=== PATIENT | female | born 1995 | race Two or more races ===

== ENCOUNTER 2019-11-05 13:07 | Emergency (ER) | payer MEDICAID ==
[~2019-11-05] VITALS: Ht 162.6 cm; Wt 56.7 kg
[2019-11-05 13:42] VITALS: BP 115/75
[2019-11-05] MEDS ORDERED: ACETAMINOPHEN 500 MG TAB PO ONE (15:00)
[2019-11-05 15:49] LABS: Basophils # (auto) 0 10 ^3/uL (0-0.2); Basophils % (auto) 0.4 % (0.0-2.0); Eosinophils # (auto) 0.1 10 ^3/uL (0-0.8); Hematocrit 37.6 % (36.0-46.0); Hemoglobin 12.6 g/dL (12.2-16.2); Lymphocytes # (auto) 1.8 10 ^3/uL (0.4-5.4); Lymphocytes % (auto) 30.3 % (10.0-50.0); Mean Corpuscular Hemoglobin 29.6 pg (28.0-32.0); Mean Corpuscular Hgb Conc. 33.6 g/dL (32.0-36.0); Monocytes # (auto) 0.4 10 ^3/uL (0-1.3); Monocytes % (auto) 6.7 % (0.0-12.0); Neutrophils # (auto) 3.6 10 ^3/uL (1.6-8.6); Neutrophils % (auto) 61.6 % (37.0-80.0); Platelet Count (auto) 199 10^3/uL (140-450); Red Blood Cells 4.27 10^6/uL (4.0-5.20); Red Cell Distribution Width 12.7 % (11.8-14.3); White Blood Cell 5.9 10^3/uL (4.4-10.8)
[2019-11-05 19:37] LABS: Urine Bacteria FEW /hpf (None Seen); Urine Blood Negative /uL (Negative); Urine Specific Gravity 1.014 (1.001-1.035); Urine WBC 6 /hpf (0 - 5)
== END 2019-11-05 16:27 | disposition home or self-care (01) ==
LOC: ER 13:07
DX: O9A.211 Injury, poisoning and certain other consequences of external causes complicating pregnancy, first trimester (principal); S06.891A Other specified intracranial injury with loss of consciousness of 30 minutes or less, initial encounter; O02.1 Missed abortion; Z3A.11 11 weeks gestation of pregnancy; W19.XXXA Unspecified fall, initial encounter; Y93.89 Activity, other specified; Y92.89 Other specified places as the place of occurrence of the external cause; Y99.8 Other external cause status
CPT/HCPCS: 36415; 70450; 76801; 81001; 84702; 85025

== ENCOUNTER 2021-12-28 08:30 | Observation (INO) | payer MEDICAID ==
[2021-12-28] MEDS ORDERED: PREN-96 PO (11:28)
== END 2021-12-28 11:35 | disposition home or self-care (01) ==
LOC: UNDOADMOB 10:56 → LDRP 10:56 → UNDODISOB 11:35
PROVIDERS: ADMIT Obstetrics & Gynecology; ATTEND Obstetrics & Gynecology
DX: O60.03 Preterm labor without delivery, third trimester (principal); Z3A.29 29 weeks gestation of pregnancy
CPT/HCPCS: 59025; 81002; 94760; G0378

== ENCOUNTER 2022-01-04 07:49 | Observation (INO) | payer MEDICAID ==
[~2022-01-04] VITALS: Ht 162.6 cm; Wt 77.1 kg
[~2022-01-04 07:49] MED LIST: PREN-96 PO
== END 2022-01-04 10:55 | disposition home or self-care (01) ==
LOC: LDRP 10:11 → UNDOADMOB 10:11 → LDRP 10:13 → UNDODISOB 10:55
PROVIDERS: ADMIT Obstetrics & Gynecology; ATTEND Obstetrics & Gynecology
DX: O60.03 Preterm labor without delivery, third trimester (principal); Z3A.30 30 weeks gestation of pregnancy
CPT/HCPCS: 59025; 81002; 94760; G0378

== ENCOUNTER 2022-01-18 10:12 | Observation (INO) | payer MEDICAID ==
[2022-01-18] MEDS ORDERED: NIF10C PO (10:57)
== END 2022-01-18 11:21 | disposition home or self-care (01) ==
LOC: LDRP 10:12
PROVIDERS: ADMIT Obstetrics & Gynecology; ATTEND Obstetrics & Gynecology
DX: O62.9 Abnormality of forces of labor, unspecified (principal); Z3A.32 32 weeks gestation of pregnancy
CPT/HCPCS: 59025; 81002; 94760; G0378

== ENCOUNTER 2022-01-25 07:40 | Observation (INO) | payer MEDICAID ==
[~2022-01-25 07:40] MED LIST changes: +NIF10C PO
== END 2022-01-29 08:38 | disposition home or self-care (01) ==
LOC: LDRP 01-29 07:53 → UNDOADMOB 01-29 07:53 → LDRP 01-29 08:00
PROVIDERS: ADMIT Obstetrics & Gynecology; ATTEND Obstetrics & Gynecology
DX: O60.03 Preterm labor without delivery, third trimester (principal); Z3A.34 34 weeks gestation of pregnancy
CPT/HCPCS: 59025; 81002; 94760; G0378

== ENCOUNTER 2022-01-27 12:04 | Observation (INO) | payer MEDICAID | END 2022-01-27 14:15 | disposition home or self-care (01) | LOC: LDRP 12:04 | PROVIDERS: ADMIT Obstetrics & Gynecology; ATTEND Obstetrics & Gynecology | DX: O09.213 Supervision of pregnancy with history of pre-term labor, third trimester (principal); Z3A.34 34 weeks gestation of pregnancy | CPT/HCPCS: 59025; 81002; 94760; G0378 ==

== ENCOUNTER 2022-01-30 11:24 | Observation (INO) | payer MEDICAID ==
[~2022-01-30] VITALS: Ht 162.6 cm; Wt 72.6 kg
[2022-01-30] MEDS ORDERED: LACTATED RINGER'S 1,000 ML IV ONE (14:15)
[2022-01-30] MEDS ORDERED: NIFEdipine 10 MG CAP PO ONE (14:15)
[2022-01-30] MEDS ORDERED: BETAMETHASONE ACET (30mg/5ml) 5ml Vial 6mg/ml IM ONE (16:00)
== END 2022-01-30 16:27 | disposition home or self-care (01) ==
LOC: LDRP 11:24 → UNDOADMOB 11:24 → LDRP 11:32
PROVIDERS: ADMIT Obstetrics & Gynecology; ATTEND Obstetrics & Gynecology
DX: O60.03 Preterm labor without delivery, third trimester (principal); O42.913 Preterm premature rupture of membranes, unspecified as to length of time between rupture and onset of labor, third trimester; Z3A.34 34 weeks gestation of pregnancy
CPT/HCPCS: 59025; 76815; 81002; 84112; 94760; 96360; 96361; G0378; Q0114

== ENCOUNTER 2022-02-01 15:09 | Observation (INO) | payer MEDICAID | END 2022-02-01 16:58 | disposition home or self-care (01) | LOC: UNDOADMOB 15:09 → LDRP 15:09 → UNDODISOB 16:58 | PROVIDERS: ADMIT Obstetrics & Gynecology; ATTEND Obstetrics & Gynecology | DX: O60.03 Preterm labor without delivery, third trimester (principal); O41.03X0 Oligohydramnios, third trimester, not applicable or unspecified; Z3A.34 34 weeks gestation of pregnancy | CPT/HCPCS: 59025; 76818; 81002; 94760; G0378 ==

== ENCOUNTER 2022-02-05 13:16 | Observation (INO) | payer MEDICAID | END 2022-02-05 15:02 | disposition home or self-care (01) | LOC: UNDOADMOB 13:16 → LDRP 13:16 | PROVIDERS: ADMIT Obstetrics & Gynecology; ATTEND Obstetrics & Gynecology | DX: O60.03 Preterm labor without delivery, third trimester (principal); O41.03X0 Oligohydramnios, third trimester, not applicable or unspecified; Z3A.35 35 weeks gestation of pregnancy | CPT/HCPCS: 59025; 76818; 81002; 94760; G0378 ==

== ENCOUNTER 2022-02-08 13:08 | Observation (INO) | payer MEDICAID | END 2022-02-08 14:40 | disposition home or self-care (01) | LOC: UNDOADMOB 13:08 → LDRP 13:08 | PROVIDERS: ADMIT Obstetrics & Gynecology; ATTEND Obstetrics & Gynecology | DX: O60.03 Preterm labor without delivery, third trimester (principal); O41.03X0 Oligohydramnios, third trimester, not applicable or unspecified; O62.9 Abnormality of forces of labor, unspecified; Z3A.35 35 weeks gestation of pregnancy | CPT/HCPCS: 59025; 76817; 76818; 81002; G0378 ==

== ENCOUNTER 2022-02-12 09:01 | Observation (INO) | payer MEDICAID | END 2022-02-12 16:03 | disposition home or self-care (01) | LOC: LDRP 14:07 → UNDOADMOB 14:07 → LDRP 15:22 → UNDODISOB 16:03 | PROVIDERS: ADMIT Obstetrics & Gynecology; ATTEND Obstetrics & Gynecology | DX: O60.03 Preterm labor without delivery, third trimester (principal); Z3A.36 36 weeks gestation of pregnancy | CPT/HCPCS: 59025; 76818; 81002; 94760; G0378 ==

== ENCOUNTER 2022-02-19 10:50 | Observation (INO) | payer MEDICAID ==
[~2022-02-19 10:50] MED LIST changes: -NIF10C PO
== END 2022-02-19 11:55 | disposition home or self-care (01) ==
LOC: LDRP 10:50 → UNDOADMOB 10:50 → LDRP 11:04
PROVIDERS: ADMIT Obstetrics & Gynecology; ATTEND Obstetrics & Gynecology
DX: O62.9 Abnormality of forces of labor, unspecified (principal); Z3A.37 37 weeks gestation of pregnancy
CPT/HCPCS: 59025; 81002; 94760; G0378

== ENCOUNTER 2022-02-26 14:15 | Observation (INO) | payer MEDICAID ==
[2022-02-26] MEDS ORDERED: ONDANSETRON HCL 4 MG/2 ML VIAL IV PRN (14:45)
[2022-02-26] MEDS ORDERED: LACTATED RINGER'S 1,000 ML IV ONE (14:45)
[2022-02-26 16:01] LABS: Albumin 2.5 g/dL (3.4-5.0); Calcium 8.3 mg/dL (8.5-10.1); Potassium 3.7 mmol/L (3.5-5.1)
[2022-02-26 16:02] LABS: INR 0.97 (0.9-1.15); Partial Thromboplastin Time 25.7 sec (24.6-33.4)
[2022-02-26 16:05] LABS: BUN/Creatinine Ratio 19.6; Bilirubin, Total 0.6 mg/dL (0.2-1.0); Total Protein 6.4 g/dL (6.4-8.2); Uric Acid 3.5 mg/dL (2.6-6.0)
[2022-02-26 16:09] LABS: Basophils # (auto) 0 10 ^3/uL (0-0.2); Basophils % (auto) 0.2 % (0.0-2.0); Eosinophils # (auto) 0.1 10 ^3/uL (0-0.8); Eosinophils % (auto) 0.9 % (0.0-7.0); Hematocrit 29.9 % (36.0-46.0); Hemoglobin 10.1 g/dL (12.2-16.2); Lymphocytes # (auto) 1.4 10 ^3/uL (0.4-5.4); Lymphocytes % (auto) 19.5 % (10.0-50.0); Mean Corpuscular Hemoglobin 27.8 pg (28.0-32.0); Mean Corpuscular Hgb Conc. 33.8 g/dL (32.0-36.0); Mean Corpuscular Volume 82.2 fL (80.0-100.0); Monocytes # (auto) 0.6 10 ^3/uL (0-1.3); Monocytes % (auto) 7.8 % (0.0-12.0); Neutrophils # (auto) 5.2 10 ^3/uL (1.6-8.6); Neutrophils % (auto) 71.6 % (37.0-80.0); Red Blood Cells 3.64 10^6/uL (4.0-5.20); Red Cell Distribution Width 14.4 % (11.8-14.3); White Blood Cell 7.3 10^3/uL (4.4-10.8)
[2022-02-26] MEDS ORDERED: FAMO20TA10 PO (16:49)
[2022-02-26 17:23] LABS: Urine Bacteria FEW /hpf (None Seen); Urine Blood Negative /uL (Negative); Urine Mucus FEW (None Seen); Urine Specific Gravity 1.018 (1.001-1.035); Urine WBC 33 /hpf (0 - 5); Urine WBC Clumps PRESENT /hpf (None Seen)
[2022-02-26 17:29] LABS: Protein, Urine 21.7 mg/dL (0.0-11.9)
== END 2022-02-26 17:04 | disposition home or self-care (01) ==
LOC: LDRP 14:15
PROVIDERS: ADMIT Obstetrics & Gynecology; ATTEND Obstetrics & Gynecology
DX: O21.2 Late vomiting of pregnancy (principal); Z3A.38 38 weeks gestation of pregnancy
CPT/HCPCS: 36415; 59025; 80053; 81001; 81002; 82570; 84156; 84550; 85025; 85610; 85730; 94760; 96360; 96361; 96374; G0378; J2405

== ENCOUNTER 2023-08-06 10:00 | Observation (INO) | payer MEDICAID ==
[~2023-08-06] VITALS: Ht 162.6 cm; Wt 72.6 kg
[~2023-08-06 10:00] MED LIST changes: +FAMO20TA10 PO
[2023-08-06 11:20] LABS: Fern Testing Negative
== END 2023-08-06 12:57 | disposition home or self-care (01) ==
LOC: UNDOADMOB 10:00 → LDRP 10:00
PROVIDERS: ADMIT Obstetrics & Gynecology; ATTEND Obstetrics & Gynecology
DX: O26.892 Other specified pregnancy related conditions, second trimester (principal); R10.9 Unspecified abdominal pain; O42.912 Preterm premature rupture of membranes, unspecified as to length of time between rupture and onset of labor, second trimester; Z3A.24 24 weeks gestation of pregnancy
CPT/HCPCS: 59025; 76805; 81002; 84112; 94760; G0378; Q0114

== ENCOUNTER 2023-08-14 07:38 | Observation (INO) | payer MEDICAID ==
[2023-08-14] MEDS ORDERED: NIFE1POW XX (08:53)
[2023-08-14] MEDS ORDERED: NIFE10CA58 PO (08:53)
[2023-08-14] MEDS ORDERED: PROG100S VA (08:54)
[2023-08-14] MEDS ORDERED: FERR1TAB36 PO (08:55)
== END 2023-08-14 09:19 | disposition home or self-care (01) ==
LOC: UNDOADMOB 07:50 → LDRP 07:50
PROVIDERS: ADMIT Obstetrics & Gynecology; ATTEND Obstetrics & Gynecology
DX: O60.02 Preterm labor without delivery, second trimester (principal); O26.872 Cervical shortening, second trimester; Z3A.25 25 weeks gestation of pregnancy
CPT/HCPCS: 59025; 81002; 94760; G0378

== ENCOUNTER 2023-08-21 08:24 | Observation (INO) | payer MEDICAID ==
[~2023-08-21 08:24] MED LIST changes: +FERR1TAB36 PO; +NIFE10CA58 PO; -PREN-96 PO
[2023-08-21 09:14] LABS: Basophils # (auto) 0 10 ^3/uL (0-0.2); Basophils % (auto) 0.5 % (0.0-2.0); Eosinophils # (auto) 0.1 10 ^3/uL (0-0.8); Eosinophils % (auto) 1.5 % (0.0-7.0); Hematocrit 30.6 % (36.0-46.0); Hemoglobin 10.4 g/dL (12.2-16.2); Lymphocytes # (auto) 1.6 10 ^3/uL (0.4-5.4); Lymphocytes % (auto) 22.6 % (10.0-50.0); Mean Corpuscular Hemoglobin 29.6 pg (28.0-32.0); Mean Corpuscular Hgb Conc. 34.1 g/dL (32.0-36.0); Mean Corpuscular Volume 86.8 fL (80.0-100.0); Monocytes # (auto) 0.5 10 ^3/uL (0-1.3); Monocytes % (auto) 7.6 % (0.0-12.0); Neutrophils # (auto) 4.7 10 ^3/uL (1.6-8.6); Neutrophils % (auto) 67.8 % (37.0-80.0); Red Blood Cells 3.53 10^6/uL (4.0-5.20); Red Cell Distribution Width 13.2 % (11.8-14.3)
[2023-08-21 09:32] LABS: Alanine Aminotransferase 13 U/L (7-40); Albumin 3.6 g/dL (3.2-4.8); Alkaline Phosphatase 70 U/L (46-116); Anion Gap 7 (5-15); Aspartate Aminotransferase 13 U/L (13-40); BUN/Creatinine Ratio 11.8 (10.0-20.0); Bilirubin, Total 0.4 mg/dL (0.2-1.0); Blood Urea Nitrogen 6 mg/dL (9-23); Calcium 8.8 mg/dL (8.5-10.1); Carbon Dioxide 23 mmol/L (20-30); Chloride 106 mmol/L (98-107); Glucose 82 mg/dL (74-106); Potassium 3.6 mmol/L (3.5-5.1); Sodium 136 mmol/L (136-145); Total Protein 6.1 g/dL (5.7-8.2)
[2023-08-21] MEDS ORDERED: URSO300C2 PO (09:41)
== END 2023-08-21 09:51 | disposition home or self-care (01) ==
LOC: LDRP 08:24 → UNDOADMOB 08:24 → LDRP 08:26 → UNDODISOB 09:51
PROVIDERS: ADMIT Obstetrics & Gynecology; ATTEND Obstetrics & Gynecology
DX: O60.03 Preterm labor without delivery, third trimester (principal); O26.872 Cervical shortening, second trimester; O26.892 Other specified pregnancy related conditions, second trimester; L29.9 Pruritus, unspecified; Z3A.26 26 weeks gestation of pregnancy
CPT/HCPCS: 36415; 59025; 80053; 81002; 85025; 94760; G0378

== ENCOUNTER 2023-08-29 12:19 | Observation (INO) | payer MEDICAID ==
[~2023-08-29 12:19] MED LIST changes: +URSO300C2 PO
== END 2023-08-29 13:31 | disposition home or self-care (01) ==
LOC: UNDOADMOB 12:19 → LDRP 12:19 → UNDODISOB 13:31
PROVIDERS: ADMIT Obstetrics & Gynecology; ATTEND Obstetrics & Gynecology
DX: O60.02 Preterm labor without delivery, second trimester (principal); O26.872 Cervical shortening, second trimester; Z3A.27 27 weeks gestation of pregnancy
CPT/HCPCS: 59025; 81002; 94760; G0378

== ENCOUNTER 2023-09-12 08:20 | Observation (INO) | payer MEDICAID ==
[~2023-09-12 08:20] MED LIST changes: -FAMO20TA10 PO
== END 2023-09-12 10:00 | disposition home or self-care (01) ==
LOC: UNDOADMOB 08:20 → LDRP 08:20 → UNDODISOB 10:00
PROVIDERS: ADMIT Obstetrics & Gynecology; ATTEND Obstetrics & Gynecology
DX: O60.03 Preterm labor without delivery, third trimester (principal); Z3A.29 29 weeks gestation of pregnancy
CPT/HCPCS: 59025; 81002; 94760; G0378

== ENCOUNTER 2023-09-17 11:40 | Observation (INO) | payer MEDICAID | END 2023-09-17 13:10 | disposition home or self-care (01) | LOC: UNDOADMOB 11:40 → LDRP 11:40 → UNDODISOB 13:10 | PROVIDERS: ADMIT Obstetrics & Gynecology; ATTEND Obstetrics & Gynecology | DX: O60.03 Preterm labor without delivery, third trimester (principal); O26.873 Cervical shortening, third trimester; Z3A.30 30 weeks gestation of pregnancy | CPT/HCPCS: 59025; 81002; G0378 ==

== ENCOUNTER 2023-10-14 12:00 | Observation (INO) | payer MEDICAID | END 2023-10-14 13:21 | disposition home or self-care (01) | LOC: UNDOADMOB 12:00 → LDRP 12:00 → UNDODISOB 13:21 | PROVIDERS: ADMIT Obstetrics & Gynecology; ATTEND Obstetrics & Gynecology | DX: O60.03 Preterm labor without delivery, third trimester (principal); O26.873 Cervical shortening, third trimester; Z3A.34 34 weeks gestation of pregnancy | CPT/HCPCS: 59025; 81002; 94760; G0378 ==

== ENCOUNTER 2023-10-22 13:15 | Observation (INO) | payer MEDICAID ==
[~2023-10-22 13:15] MED LIST changes: -URSO300C2 PO
== END 2023-10-22 15:10 | disposition home or self-care (01) ==
LOC: LDRP 13:15
PROVIDERS: ADMIT Obstetrics & Gynecology; ATTEND Obstetrics & Gynecology
DX: O60.03 Preterm labor without delivery, third trimester (principal); O26.873 Cervical shortening, third trimester; Z3A.35 35 weeks gestation of pregnancy; Z79.899 Other long term (current) drug therapy
CPT/HCPCS: 59025; 81002; 94760; G0378

== ENCOUNTER 2023-10-29 16:00 | Observation (INO) | payer MEDICAID ==
[2023-10-29 17:17] LABS: Fern Testing Negative
== END 2023-10-29 18:05 | disposition home or self-care (01) ==
LOC: UNDOADMOB 16:00 → LDRP 16:00 → UNDODISOB 18:05
PROVIDERS: ADMIT Obstetrics & Gynecology; ATTEND Obstetrics & Gynecology
DX: O42.913 Preterm premature rupture of membranes, unspecified as to length of time between rupture and onset of labor, third trimester (principal); Z3A.36 36 weeks gestation of pregnancy
CPT/HCPCS: 59025; 76818; 81002; 84112; G0378; Q0114